=== PATIENT | male | born 1945 | race Caucasian/White ===

== ENCOUNTER 2018-03-21 09:16 | Emergency (ER) | payer MEDICARE, OTHER ==
[~2018-03-21] VITALS: Ht 182.9 cm; Wt 88.5 kg
[2018-03-21] MEDS ORDERED: losartan PO (09:58)
[2018-03-21] MEDS ORDERED: CLONAZEPAM1 MG PO (09:58)
[2018-03-21] MEDS ORDERED: METFORMIN HCL500 MG PO (09:58)
[2018-03-21] MEDS ORDERED: HYDROCHLOROTHIA25 MG (09:58)
[2018-03-21] MEDS ORDERED: TOPROL XL50 MG PO (09:58)
[2018-03-21] MEDS ORDERED: ZANAFLEX4 M1 PO (09:58)
[2018-03-21] MEDS ORDERED: FINASTERIDE5 MG PO (09:58)
[2018-03-21] MEDS ORDERED: ASPIR 8181 MG PO (09:58)
[2018-03-21] MEDS ORDERED: VITAMIN D1000 UNI1 PO (09:58)
[2018-03-21] MEDS ORDERED: PLAVIX75 MG PO (09:58)
[2018-03-21] MEDS ORDERED: CRESTOR10 MG PO (09:58)
[2018-03-21] MEDS ORDERED: LIDOCAINE JELLY 2% 10ML URO-JET TOP ONE (10:15)
[2018-03-21 11:00] LABS: CLARITY,URINE SL CLOUDY (CLEAR); COLOR,URINE YELLOW (YELLOW); KETONES,URINE NEGATIVE (NEGATIVE); LEUKOCYTE ESTERASE ,URINE NEGATIVE (NEGATIVE); NITRITE,URINE NEGATIVE (NEGATIVE); PROTEIN,URINE DIPSTICK 1+ (NEGATIVE)
[2018-03-21 11:01] LABS: BILIRUBIN,URINE NEGATIVE (NEGATIVE); URINE UROBILINOGEN 0.2 mg/dL (0.2 - 1)
[2018-03-21 11:04] LABS: BACTERIA,URINE FEW /HPF; EPITHELIAL CELLS,URINE FEW /LPF; RBC,URINE >50 /HPF (0-5); TRANSITIONAL EPI CELLS,URINE RARE; WBC,URINE (MAN) 0-5 /HPF (0-5)
[2018-03-21 11:47] LABS: BASOPHILS # (AUTO) 0.1 (0.0-0.1); BASOPHILS % 0.3 % (0.0-1.0); EOSINOPHILS # (AUTO) 0.1 (0.0-0.4); EOSINOPHILS % 0.2 % (0.0-6.0); HEMATOCRIT 48.9 % (38.2-49.6); HEMOGLOBIN 16.2 g/dL (14.0-18.0); LYMPHOCYTES # (AUTO) 41.7 (1.0-3.2); LYMPHOCYTES % 87.6 % (18.0-39.1); MEAN CORPUSCULAR HEMOGLOBIN 31.4 pg (28-32); MEAN CORPUSCULAR HGB CONC 33.1 g/dL (31-35); MEAN CORPUSCULAR VOLUME 94.8 fL (81-99); MONOCYTES # (AUTO) 0.7 (0.2-0.8); MONOCYTES % 1.6 % (4.4-11.3); NEUTROPHILS # (AUTO) 4.8 (2.1-6.9); NEUTROPHILS % 10.1 % (38.7-80.0); PLATELET COUNT 117 x10e3/uL (140-360); RED BLOOD COUNT 5.16 x10e6/uL (4.3-5.7); RED CELL DISTRIBUTION WIDTH 13.6 % (11.7-14.4)
[2018-03-21 12:14] LABS: ANION GAP 13.5 mmol/L (8-16); CREATININE, SERUM 1.38 mg/dL (0.72-1.25); POTASSIUM 4.5 mmol/L (3.5-5.1)
[2018-03-21 13:03] LABS: LYMPHOCYTES % (MANUAL) 66 % (19-48); MONOCYTES % (MANUAL) 5 % (3.4-9.0); NEUTROPHILS % (MANUAL) 13 % (40-74)
[2018-03-21 13:08] LABS: PLATELET ESTIMATE SLIGHTLY DECREASED; PLATELET MORPHOLOGY COMMENT NORMAL
[2018-03-21 13:09] VITALS: BP 131/81
[2018-03-21 13:09] LABS: ANISOCYTOSIS SLIGHT; RBC MORPHOLOGY COMMENT NORMAL; SMUDGE CELLS FEW
== END 2018-03-21 13:12 | disposition home or self-care (01) ==
LOC: ER 09:16
DX: N40.1 Benign prostatic hyperplasia with lower urinary tract symptoms (principal); R33.8 Other retention of urine; R39.15 Urgency of urination; I10 Essential (primary) hypertension; E78.5 Hyperlipidemia, unspecified; G47.00 Insomnia, unspecified; D72.820 Lymphocytosis (symptomatic); Z85.6 Personal history of leukemia
CPT/HCPCS: 36415; 80048; 81001; 85025; 87086; 99284

== ENCOUNTER 2018-03-26 09:55 | Emergency (ER) | payer MEDICARE, OTHER ==
[~2018-03-26] VITALS: Ht 182.9 cm; Wt 88.5 kg
[~2018-03-26 09:55] MED LIST: ASPIR 8181 MG PO; CLONAZEPAM1 MG PO; CRESTOR10 MG PO; FINASTERIDE5 MG PO; HYDROCHLOROTHIA25 MG; METFORMIN HCL500 MG PO; PLAVIX75 MG PO; TOPROL XL50 MG PO; VITAMIN D1000 UNI1 PO; ZANAFLEX4 M1 PO; losartan PO
[2018-03-26] MEDS ORDERED: ONDANSETRON HCL INJ 2 MG/ML VIAL IV STA (10:12)
[2018-03-26] MEDS ORDERED: HYDROMORPHONE 1MG/1ML INJ IV STA ×2 (10:12→12:21)
[2018-03-26 10:26] LABS: BASOPHILS # (AUTO) 0.2 (0.0-0.1); BASOPHILS % 0.4 % (0.0-1.0); EOSINOPHILS # (AUTO) 0.1 (0.0-0.4); EOSINOPHILS % 0.2 % (0.0-6.0); HEMATOCRIT 48.7 % (38.2-49.6); HEMOGLOBIN 15.9 g/dL (14.0-18.0); LYMPHOCYTES # (AUTO) 43.4 (1.0-3.2); LYMPHOCYTES % 85.1 % (18.0-39.1); MEAN CORPUSCULAR HGB CONC 32.6 g/dL (31-35); MEAN CORPUSCULAR VOLUME 94.9 fL (81-99); MONOCYTES # (AUTO) 0.6 (0.2-0.8); MONOCYTES % 1.2 % (4.4-11.3); NEUTROPHILS # (AUTO) 6.6 (2.1-6.9); NEUTROPHILS % 12.8 % (38.7-80.0); PLATELET COUNT 116 x10e3/uL (140-360); RED BLOOD COUNT 5.13 x10e6/uL (4.3-5.7); RED CELL DISTRIBUTION WIDTH 13.4 % (11.7-14.4)
[2018-03-26 10:28] LABS: BILIRUBIN,URINE 1+ (NEGATIVE); CLARITY,URINE CLOUDY (CLEAR); COLOR,URINE YELLOW (YELLOW); KETONES,URINE NEGATIVE (NEGATIVE); LEUKOCYTE ESTERASE ,URINE NEGATIVE (NEGATIVE); NITRITE,URINE NEGATIVE (NEGATIVE); PROTEIN,URINE DIPSTICK 2+ (NEGATIVE); URINE UROBILINOGEN 0.2 mg/dL (0.2 - 1)
[2018-03-26 10:42] LABS: ANION GAP 15.8 mmol/L (8-16); CALCIUM 10.3 mg/dL (8.4-10.2); CREATININE, SERUM 1.46 mg/dL (0.72-1.25); POTASSIUM 3.8 mmol/L (3.5-5.1)
[2018-03-26 10:48] LABS: RBC,URINE >50 /HPF (0-5)
[2018-03-26 10:49] LABS: WBC,URINE (MAN) 21-50 /HPF (0-5)
[2018-03-26 10:55] LABS: BACTERIA,URINE MODERATE /HPF; EPITHELIAL CELLS,URINE FEW /LPF
[2018-03-26 11:02] LABS: URIC ACID CRYSTALS,URINE FEW (FEW)
[2018-03-26 11:23] LABS: ANISOCYTOSIS SLIGHT; LYMPHOCYTES % (MANUAL) 78 % (19-48); MONOCYTES % (MANUAL) 4 % (3.4-9.0); NEUTROPHILS % (MANUAL) 13 % (40-74)
[2018-03-26 11:24] LABS: PLATELET ESTIMATE SLIGHTLY DECREASED; PLATELET MORPHOLOGY COMMENT NORMAL
[2018-03-26 11:25] LABS: RBC MORPHOLOGY COMMENT NORMAL
[2018-03-26] MEDS ORDERED: CEFTRIAXONE SOD 1 GM VIAL IV ONE (11:30)
--- NOTE | 2018-03-26 11:44 | Diagnostic Imaging Report ---
PROCEDURE: CT ABDOMEN AND PELVIS WITHOUT CONTRAST COMPARISON:None. INDICATIONS:Flank pain TECHNIQUE: Stone protocol Volumetric CT abdomen and pelvis. No intravenous or enteric contrast. Multiplanar reformatted images. DLP: 789.21 FINDINGS: 3 mm right lower lobe nodule. Lung bases otherwise clear. No pleural effusions. Normal heart size. Severe three-vessel coronary artery disease. No pericardial effusion. Liver: Normal Gallbladder: Normal. No bile duct dilation. Pancreas: Normal Spleen: Diffusely enlarged; span 16 cm. Adrenal glands: Normal Kidneys: 0.6 x 0.5 cm stone at the left ureterovesicular junction with resulting mild hydronephrosis. Nonspecific bilateral perinephric fat stranding. 1.7 cm right parapelvic cyst. 0.2 cm left inferior pole stone. Urinary bladder: Decompressed by Blancas catheter. Prostate and seminal vesicles: Normal Bowel: Normal caliber. Appendectomy. Peritoneum: Normal Vasculature: Normal caliber. Moderate scattered atherosclerosis. Lymph nodes: Normal Skeleton: Intact. Mild multilevel degenerative disc disease most notable at L5-S1 where there is near-complete loss of disc space height. Soft tissues: Fat-containing left inguinal hernia. Otherwise, normal CONCLUSION: 1. 0.6 x 0.5 cm stone at the left ureterovesicular junction with accompanying mild hydronephrosis. 2. 0.2 cm left inferior pole nephrolithiasis. 3. Splenomegaly of indeterminate etiology. Dictated by: Isma Phillips M.D. on 03/26/2018 at 11:47 Electronically approved by: Isma Phillips M.D. on 03/26/2018 at 11:47
[2018-03-26] MEDS ORDERED: HYDROMORPHONE 2MG/ML INJ IV ONE (12:30)
[2018-03-26] MEDS ORDERED: HYDROMORPHONE 1MG/1ML INJ IV ONE (12:45)
[2018-03-26 13:03] VITALS: BP 143/86
== END 2018-03-26 13:22 | disposition home or self-care (01) ==
LOC: ER 09:55
DX: M54.9 Dorsalgia, unspecified (principal); N20.1 Calculus of ureter; I10 Essential (primary) hypertension; E11.9 Type 2 diabetes mellitus without complications; I25.10 Atherosclerotic heart disease of native coronary artery without angina pectoris
CPT/HCPCS: 36415; 74176; 80048; 81001; 84152; 84550; 85025; 96374; 96375; 96376; 99284; J0696; J1170; J2405

== ENCOUNTER → 2018-11-01 | Outpatient (CLI) | payer MEDICARE, OTHER ==
--- NOTE | 2018-11-01 13:17 | Diagnostic Imaging Report ---
EXAMINATION: Renal ultrasound. CLINICAL HISTORY :Renal cyst COMPARISON: CT abdomen and pelvis without contrast 03/26/2018. TECHNIQUE: Grayscale and color Doppler evaluation of the kidneys and bladder was performed in transverse and longitudinal planes. DISCUSSION: RIGHT KIDNEY: The right kidney measures 13.4 cm in length and shows normal renal cortical echogenicity. Previously described peripelvic cyst on CT abdomen and pelvis 03/26/2018 is not identified by sonography. No calculi or solid mass lesion. LEFT KIDNEY: The left kidney measures 10.8 cm in length and shows normal echogenicity. No hydronephrosis, shadowing calculi or solid mass lesions. BLADDER: Unremarkable. Ureteral jets are not identified likely related to timing of acquisition. IMPRESSION: Unremarkable sonographic appearance of the kidneys. Small peripelvic right renal cyst described on comparison CT is not identified by sonography. Signed by: Dr. Micheal Charlton M.D. on 11/01/2018 1:13 PM
== END ==
LOC: US 11:57
PROVIDERS: ATTEND Urology
DX: N28.1 Cyst of kidney, acquired (principal)
CPT/HCPCS: 76770

== ENCOUNTER → 2019-08-23 | Outpatient (CLI) | payer MEDICARE, OTHER ==
--- NOTE | 2019-08-23 15:46 | Diagnostic Imaging Report ---
EXAM: Renal Ultrasound INDICATION: ^[id number] ^[id number] ^CALCULUS OF KIDNEY / MICROSCOPIC HEMATURIA COMPARISON: Renal ultrasound of 11/01/2018, CT abdomen and pelvis of 03/26/2018 TECHNIQUE: Transverse and longitudinal images of the kidneys and bladder were obtained. FINDINGS: Right Kidney: Length: 12.6 cm Appearance: Normal echogenicity. Collecting system: No hydronephrosis Stones: None Cyst/Mass: Anechoic cysts measure 1.6 x 1.2 x 1.3 cm and 1.6 x 1.1 x 1.4 cm. Left Kidney: Length: 11.4 cm Appearance: Normal echogenicity. Collecting system: No hydronephrosis Stones: None Cyst/Mass: None Bladder: No mass or calculi. Bilateral ureteral jets seen. Prevoid volume estimate of 225cc. The prostate is not well visualized. IMPRESSION: No hydronephrosis or renal calculi. Right peripelvic renal cysts, stable compared to CT of 03/26/2018 allowing for differences in technique. Signed by: Jeevan Odom MD on 08/23/2019 3:42 PM
== END ==
LOC: US 13:49
PROVIDERS: ATTEND Urology
DX: R31.21 Asymptomatic microscopic hematuria (principal); N20.1 Calculus of ureter
CPT/HCPCS: 76770

== ENCOUNTER → 2020-04-21 | Day surgery (SDC) | payer MEDICARE, OTHER ==
[2020-03-19 11:15] LABS: BASOPHILS # (AUTO) 0.1 (0.0-0.1); BASOPHILS % 0.1 % (0.0-1.0); EOSINOPHILS # (AUTO) 0.1 (0.0-0.4); EOSINOPHILS % 0.2 % (0.0-6.0); HEMATOCRIT 50.3 % (38.2-49.6); HEMOGLOBIN 16.1 g/dL (14.0-18.0); LYMPHOCYTES % 85.7 % (18.0-39.1); MEAN CORPUSCULAR HEMOGLOBIN 30.3 pg (28-32); MEAN CORPUSCULAR VOLUME 94.7 fL (81-99); MONOCYTES # (AUTO) 0.7 (0.2-0.8); MONOCYTES % 1.5 % (4.4-11.3); NEUTROPHILS # (AUTO) 5.6 (2.1-6.9); NEUTROPHILS % 12.2 % (38.7-80.0); PLATELET COUNT 128 x10e3/uL (140-360); RED BLOOD COUNT 5.31 x10e6/uL (4.3-5.7); RED CELL DISTRIBUTION WIDTH 13.3 % (11.7-14.4)
[2020-03-19 11:45] LABS: ALBUMIN 4.4 g/dL (3.5-5.0); ALBUMIN/GLOBULIN RATIO 1.5 (0.8-2.0); ANION GAP 17.2 mmol/L (8-16); CALCIUM 9.9 mg/dL (8.4-10.2); CREATININE, SERUM 2.01 mg/dL (0.72-1.25); POTASSIUM 4.2 mmol/L (3.5-5.1)
[2020-03-19 21:34] LABS: LYMPHOCYTES % (MANUAL) 71 % (19-48); MONOCYTES % (MANUAL) 5 % (3.4-9.0); NEUTROPHILS % (MANUAL) 13 % (40-74)
[2020-03-19 21:35] LABS: ANISOCYTOSIS MODE; PLATELET ESTIMATE SLIGHTLY DECREASED; PLATELET MORPHOLOGY COMMENT NORMAL; POIKILOCYTOSIS SLIGHT; RBC MORPHOLOGY COMMENT ABNORMAL
[2020-04-16 10:14] LABS: BASOPHILS # (AUTO) 0.1 (0.0-0.1); BASOPHILS % 0.1 % (0.0-1.0); EOSINOPHILS # (AUTO) 0.1 (0.0-0.4); EOSINOPHILS % 0.3 % (0.0-6.0); HEMATOCRIT 51.5 % (38.2-49.6); HEMOGLOBIN 16.6 g/dL (14.0-18.0); LYMPHOCYTES # (AUTO) 34.3 (1.0-3.2); LYMPHOCYTES % 86.6 % (18.0-39.1); MEAN CORPUSCULAR HEMOGLOBIN 30.5 pg (28-32); MEAN CORPUSCULAR HGB CONC 32.2 g/dL (31-35); MEAN CORPUSCULAR VOLUME 94.7 fL (81-99); MONOCYTES % 2.5 % (4.4-11.3); NEUTROPHILS # (AUTO) 4.1 (2.1-6.9); NEUTROPHILS % 10.2 % (38.7-80.0); PLATELET COUNT 114 x10e3/uL (140-360); RED BLOOD COUNT 5.44 x10e6/uL (4.3-5.7); RED CELL DISTRIBUTION WIDTH 13.6 % (11.7-14.4)
[2020-04-16 10:40] LABS: ALBUMIN 4.5 g/dL (3.5-5.0); ALBUMIN/GLOBULIN RATIO 1.5 (0.8-2.0); ANION GAP 14.1 mmol/L (8-16); CALCIUM 10.3 mg/dL (8.4-10.2); CREATININE, SERUM 1.74 mg/dL (0.72-1.25); POTASSIUM 4.1 mmol/L (3.5-5.1)
[2020-04-16 13:11] LABS: BAND NEUTROPHILS % (MANUAL) 4 %; LYMPHOCYTES % (MANUAL) 81 % (19-48); MONOCYTES % (MANUAL) 3 % (3.4-9.0); NEUTROPHILS % (MANUAL) 12 % (40-74)
[~2020-04-21] VITALS: Ht 182.9 cm; Wt 90.7 kg
[~2020-04-21] MED LIST changes: +ALPRAZOLAM 0.5 MG TAB ONE; +DIPHENHYDRAMINE HCL 25 MG CAP ONE; +FENTANYL CITRATE/PF 100MCG/2 ML INJ ONE; +FLOMAX0.4 MG PO; +HEPARIN SOD/SOD CHLORIDE 2,000 ML ONE; +IOPAMIDOL 370 MG/ML 200 ML INFUS..BTL INJ ONE; +LIDOCAINE HCL 2% LOCAL 20 ML VIAL ONE; +LOSARTAN POTASS50 MG PO; +MIDAZOLAM HCL 2 MG/2 ML VIAL ONE; +SODIUM CHLORIDE 0.9% 1000ML 1,000 ML ONE; +VERAPAMIL HCL 2.5 MG/ML 2 ML VIAL ONE; +ZANAFLEX2 M1 PO
--- NOTE | 2020-04-21 13:30 | NUR ---
PT brought to pre-op 7. Alert oriented and appropriate, PERRLA, respirations even and unlabored to room air. Pulses x4 extremities equal and strong. + neurovascular function to right hand. Cap fill brisk < 3 sec. Skin warm and dry integrity appears intact. IV 20g to left mid forearm presents healthy w/o s/s of infiltration or complaint. Abdomen soft and supple. pt offered toileting, denies need to urinate or defecate. Personal affects with patient. Family, spouse, at bedside. Pt and family verbalizes understanding of POC. Pre-Op Meds xanax 0.5 / benadryl 50mg. Currently w/o complaint of pain or need. bed low and locked, siderails up x3, and call light within reach. room lite on. -cgf
--- NOTE | 2020-04-21 16:24 | NUR ---
1624pm Received pt to room #10,bedside report received from RN. Alert oriented and appropriate, PERRLA, respirations even and unlabored to room air. Pulses x4 extremities equal and strong. Pedal pulses PT/DP X4 and marked. Cap fill brisk < 3 sec. Rt Tr band site. No gross issues pain,pallor pressure or dysrhythmia.Dr Da Silva no fix [facility] Skin warm and dry integrity appears D/I. IV 20g to left ac presents healthy w/o s/s of infiltration or complaint. Abdomen soft and supple. pt offered toileting, denies need to urinate or defecate. No personal affects with patient. Family at bedside. Currently w/o complaint of pain or need. ds./rn
[2020-04-21 16:34] VITALS: BP 128/77
[2020-04-21 16:44] VITALS: BP 116/68
[2020-04-21 17:00] VITALS: BP 119/77
--- NOTE | 2020-04-21 17:00 | NUR ---
1700 RADIAL Compression removal: Initial Cuff volume 13 cc 1700 -3cc Removed No hematoma/bleeding noted with normal neurovascular function. 1715 -5 cc Removed No hematoma/ bleeding noted with normal neurovascular function. 1730 -5cc Removed No hematoma/bleeding noted with normal neurovascular function. Air removal completed. Stasis achieved sterile 2x2,Tegaderm, Coban dressing No hematoma, bleeding noted with normal neurovascular function. Wrist splint in place. Pt instructed on POC.
[2020-04-21 17:30] VITALS: BP 115/66
--- NOTE | 2020-04-21 17:30 | NUR ---
1730pm Pt meets DC criteria. rt Tr band assessed for s/s of complication and presence of hematoma. Skin warm, dry, no discolor, and pulses present. IV removed from left ac Distal tip appears intact. VS WNL. Pt denies pain, sob, or need at this time. Family at Bs. Review of discharge paperwork and follow up instructions. verbalized understanding. Pt to wheelchair and transported to front of hospital. Transferred to private vehicle under own strength w/o incident with DC paperwork in hand. - ds/rn
--- NOTE | 2020-04-21 19:31 | Operative Report ---
DATE OF PROCEDURE: 04/21/2020 SURGEON: Tano Da Silva MD INDICATIONS: Coronary artery disease, angina with abnormal stress test. PROCEDURES PERFORMED: 1. Ultrasound-guided access in the right radial artery with sheath placement. 2. Conscious sedation, 35 minutes. 3. Left heart catheterization, selective coronary angiography. 4. Deployment of right wrist TR band. COMPLICATIONS: None. RECOMMENDATIONS: Medical therapy. DESCRIPTION OF PROCEDURE: Access was obtained in the right radial artery. Using ultrasound guidance, a 5-Arabic sheath was placed. Coronary angiography demonstrated mild disease in the left main coronary artery. Left anterior descending artery proximal stent had mild in-stent restenosis proximal to the stent, 50% LAD stenosis. Diagonal artery was jailed within the stent with 70% stenosis. This was a 1.5 mm vessel. Circumflex was small vessel. Right coronary artery was dominant. Mid stent had 20% to 30% stenosis. Remaining vessel had diffuse 30% to 50% stenosis. No intervention deemed necessary. Right wrist TR band applied. The patient discharged home the same day. MD ROCAEL Jacob/MODL /[id number]
== END | disposition home or self-care (01) ==
LOC: CATH LAB 12:30
PROVIDERS: ATTEND Internal Medicine Interventional Cardiology
DX: I25.118 Atherosclerotic heart disease of native coronary artery with other forms of angina pectoris (principal); I10 Essential (primary) hypertension; R94.39 Abnormal result of other cardiovascular function study; Z01.812 Encounter for preprocedural laboratory examination; Z11.59 Encounter for screening for other viral diseases; Z95.5 Presence of coronary angioplasty implant and graft
CPT/HCPCS: 36415; 76937; 80053; 85025; 93454; 99152; C1769; C1887; J2001; J2250; J3010; J7030; Q9967; U0002